=== PATIENT | male | born 1995 | race Caucasian/White ===

== ENCOUNTER 2018-03-01 14:24 | Inpatient (IN) | payer BC, OTHER ==
[~2018-03-01] VITALS: Ht 182.9 cm; Wt 81.6 kg
[2018-03-01] MEDS ORDERED: MAGNESIUM HYDROXIDE 30 ML LIQUID UDC PO PRN (15:30)
[2018-03-01] MEDS ORDERED: ONDANSETRON ODT 4 MG TAB.RAPDIS SL PRN (15:30)
[2018-03-01] MEDS ORDERED: LOPERAMIDE HCL 2 MG CAPSULE PO PRN ×2 (15:30)
[2018-03-01] MEDS ORDERED: DIAZEPAM 10 MG TABLET PO PRN ×2 (15:30)
[2018-03-01] MEDS ORDERED: IBUPROFEN 600 MG TABLET PO PRN (15:30)
[2018-03-01] MEDS ORDERED: MIRALAX 17 GM POWD.PACK PO PRN (15:30)
[2018-03-01] MEDS ORDERED: ACETAMINOPHEN 325 MG TABLET PO PRN (15:30)
[2018-03-01] MEDS ORDERED: ONDANSETRON 4 MG/2 ML VIAL IM PRN (15:30)
[2018-03-01] MEDS ORDERED: LORAZEPAM 2 MG/1 ML VIAL IM PRN (15:30)
[2018-03-01] MEDS ORDERED: DIAZEPAM 5 MG TABLET PO PRN (15:30)
[2018-03-01] MEDS ORDERED: MAG HYDROX/AL HYDROX/SIMETH 30 ML LIQUID UDC PO PRN (15:30)
--- NOTE | 2018-03-01 16:12 | NUR ---
Admission Patient is a 22y/o male presenting to [facility] for medically supervised withdrawal from Xanax and Klonopin. Patient also takes prescribed Adderall. Skin and body check completed, no contraband found and skin intact. Pt. is A&O x 4 with steady gait. He presents with flat affect, linear thinking, and monotone speech. He is cooperative with assessment but becomes emotional and tearful at times stating that he is homesick. "I don't want to stay here too long. I just want to feel better and go home. I miss home." Admitting VS: BP 139/89, P 98, Temp. 98.4, O2 sat 100%, RR 16, pain 0/10. He does not appear intoxicated. CIWA 4 for anxiety and sweating. Patient was transferred here from [facility] where he was on a hold for DTO. Per patient, he took an unspecified amount of Adderall on Monday night (02/25), became angry and his mom and stepfather called the police. He was taken to [facility], placed on a 5150, and this was extended to a 5250. The 5250 was broken by the psychiatrist at [facility] so that he could be transferred to [facility] for detox. Substance Use History: 1.Xanax: 15-20 mg/day x 7 months. He first used Xanax 2 years ago when his stepfather gave it to him for expressed anxiety. He did not develop a daily habit until 7 months ago. Per patient, he purchases xanax on the streets, it was never prescribed. Last dose Sat night @6pm, 4 mg. 2.Klonopin: prescribed 6 mg/day x 2 years but per patient would sometimes take as much as 10mg/day. Last use 2 mg 03/01/18 at 0800 (give to him daily while at [facility]). 3.Adderall: prescribed 90 mg/day (30 mg TID) x 2 years for ADHD. Last dose Sun night @ 6pm, unsure of dosage. 4.Marijuana: smoke varied amounts intermittently Pt. denies history of withdrawal seizure, withdrawal induced delirium, withdrawal induced cardiac complications, blackouts, or OD. He states that typical withdrawal sx include tremors, vomiting, visual hallucinations that he describes as shifting light and things starting to look bigger than they are.He states that he sometimes experiences these in the morning and they are relieved by taking more xanax. Psychiatric Conditions: 1.ADHD: diagnosed at 20 yo. Patient was prescribed Adderall 30 mg TID 2.Depression, diagnosed at 20 yo. 3.Anxiety: diagnosed at 20 yo. Patient was prescribed Klonopin 6mg/day Pt states that he was also prescribed Risperdal (unknown dosage) by his psychiatrist (Dr. Jered Raines) but hasnt taken it in months. Per patient, he was prescribed Depakote while at [facility]. Patient denies having been diagnosed with Bipolar Disorder or Schizophrenia. Patient appears to need some education in this area. Pt. did not bring any home meds. Pt. denies any history of medical conditions. He states that his psychiatrist is Dr. Jered Raines. He is not sure who his PCP is. Pt denies SI/HI or history of SI/SA. He has had one psychiatric hold initiated on 02/25/18 and is described above. Treatment History: This is the patients first time in treatment. Per patient, has never attempted to get sober on his own. Motivation/Triggers: Patient states he took all substances solely to relieve anxiety. Per patient, he was prescribed Klonopin for his anxiety disorder, but found that the prescribed dosage was not enough to relieve anxiety. He began taking larger than prescribed doses of Klonopin and when his prescription would run out, he began purchasing Xanax on the streets. Patient lacks insight into his substance abuse disorder, stating I have fully detoxed at [facility]. And I have made the decision to never use drugs again. Once I make a decision, I dont have any problem following through with it. Patient repeatedly states that he is homesick and states that he wants to go home. He denies consequences from his substance abuse other than the confrontation he had with his mother/stepfather over the weekend and the subsequent 5150 hold. He states his main motivation for wanting to stay sober is because he now realizes that it is hurting his mom and he doesnt want to upset her. Patient states that he lives in an apartment paid for by his mother. Patient repeatedly states that he no longer has a problem ,that he was cured at [facility] and just wants to go home. Patient was educated on the recovery process and promises to stay, speak with the doctor, and learn more about recovery. Patient is kind, cooperative, and easily redirectable. Pt. oriented to the unit and explained rules, procedures, and protocols. Addendum: 03/02/18 at 0650 by GALILEO HO RN Clarification of Use History While at [facility] (02/26-03/01) patient was given Klonopin 4mg/day, last dose 03/01/18 2mg @8am
--- NOTE | 2018-03-01 17:20 | NUR ---
PRN ADMINISTRATION: PT with complaints of increased anxiety and agitation, pt noted with sweats and flushing of the skin. 10 mg of valium was administered, will reassess effectiveness of medication
[2018-03-01 17:35] LABS: *AMPHETAMINE, URINE NEGATIVE (NEGATIVE); *BARBITURATE, URINE NEGATIVE (NEGATIVE); *CANNABINOID, URINE POSITIVE (NEGATIVE); *COCCAINE, URINE NEGATIVE (NEGATIVE); *OPIATE, URINE NEGATIVE (NEGATIVE); *PHENCYCLIDINE SCREEN,URINE NEGATIVE (NEGATIVE)
[2018-03-01 17:41] LABS: BASOPHILS # (AUTO) 0.1 K/uL (0.0-8.0); BASOPHILS % (AUTO) 0.6 % (0.0-2.0); EOSINOPHILS # (AUTO) 0.2 K/uL (0.0-0.7); EOSINOPHILS % (AUTO) 1.7 % (0.0-7.0); HEMATOCRIT 44.9 % (36.7-47.1); HEMOGLOBIN 15.9 g/dL (12.5-16.3); LYMPHOCYTES # (AUTO) 2.3 K/uL (20.0-40.0); LYMPHOCYTES % (AUTO) 21.1 % (20.5-51.5); MEAN CORPUSCULAR HEMOGLOBIN 31.7 uug (23.8-33.4); MEAN CORPUSCULAR HGB CONC 35 g/dL (32.5-36.3); MEAN CORPUSCULAR VOLUME 89.7 fL (73.0-96.2); MONOCYTES # (AUTO) 1.1 K/uL (2.0-10.0); MONOCYTES % (AUTO) 10.2 % (0.0-11.0); NEUTROPHILS # (AUTO) 7.1 K/uL (1.8-8.9); NEUTROPHILS % (AUTO) 66.4 % (38.5-71.5); PLATELET COUNT (AUTO) 296 K/uL (152-348); RED BLOOD CELL COUNT(AUTO) 5.01 MIL/uL (4.06-5.63); WHITE BLOOD COUNT (AUTO) 10.8 K/uL (3.6-10.2)
[2018-03-01 17:54] LABS: ALANINE AMINOTRANSFERASE 35 U/L (16-63); ALKALINE PHOSPHATASE 75 U/L (50-136); ASPARTATE AMINOTRANSFERASE 17 U/L (15-37); BILIRUBIN,TOTAL 0.3 mg/dL (0.2-1.0); CARBON DIOXIDE 33 mmol/L (21-32); CHLORIDE 104 mmol/L (98-107); CREATININE 1.3 mg/dL (0.6-1.3); GLUCOSE 67 mg/dL (74-106); MAGNESIUM 2.3 mg/dL (1.8-2.4); POTASSIUM 3.4 mmol/L (3.5-5.1); TOTAL PROTEIN, SERUM 7.1 g/dL (6.4-8.2)
[2018-03-01 18:05] LABS: THYROID STIMULATING HORMONE 3.081 mIU/mL (0.358-3.740)
[2018-03-01 18:08] LABS: UREA NITROGEN, BLOOD 4 mg/dL (7-18)
[2018-03-01] MEDS: CLONIDINE HCL 0.1 MG TABLET PO PRN (18:12)
[2018-03-01 18:17] LABS: ETHANOL < 3 MG/DL (0-0)
--- NOTE | 2018-03-01 18:49 | NUR ---
end of shift note: pt verbalizing that 10 mg of valium will not touch me i'm still anxious, Patient also received clonidine for increased b/p of 165/95. manufacturing supervisor 2nd shift to re-assess. pt is admitted to [facility] for benzo withdrawal/dependence, last documented ciwa is 13. will endorse pt to manufacturing supervisor 2nd shift nurse to reassess effectiveness of clonidine
--- NOTE | 2018-03-01 19:53 | NUR ---
START OF SHIFT NOTE Rcvd report from outgoing nurse. Pt is a 22 y/o male A/O to person, place, time, and purpose. Pt was admitted for medically supervised withdrawal from Benzodiazepines. Pt is scheduled to begin a 5 day Valium taper on 03/02/18. Pt has been presenting w/ emotional volatility, anxiety, irritability, drowsiness, and depressed mood. Pt has been asleep in his room for the past 2 hrs. Pt rcvd PRN Valium and Clonidine, both were noted effective by outgoing nurse. Last CIWA 13 @ 1600. Call light is within reach. Pt will continue to be monitored and needs met.
[2018-03-01 20:00] VITALS: BP 126/80
--- NOTE | 2018-03-01 20:00 | NUR ---
CIWA DEFERRED Pt is in bed w/ his eyes closed. Pt is unarousable to voice and touch. Pt's respirations are unlabored and even.
[2018-03-01] MEDS ORDERED: POTASSIUM CHLORIDE 20 MEQ TAB.PRT.SR PO ONE (21:00)
--- NOTE | 2018-03-02 | NUR ---
CIWA DEFERRED Pt is in bed w/ his eyes closed. Pt's respirations are unlabored and even.
--- NOTE | 2018-03-02 04:00 | NUR ---
CIWA DEFERRED Pt is in bed w/ his eyes closed. Pt's respirations are unlabored and even. Pt will continue to be monitored.
[2018-03-02] MEDS ORDERED: AMPH30CA3 PO (07:12)
[2018-03-02] MEDS ORDERED: CLON2TAB PO (07:13)
--- NOTE | 2018-03-02 07:17 | NUR ---
END OF SHIFT NOTE Endorsed pt to oncoming nurse. Pt is a 22 y/o male A/O to person, place, time, and purpose. Pt was admitted for medically supervised withdrawal from Benzodiazepines. Pt is scheduled to begin a 5 day Valium taper on 03/02/18. Pt continued presenting w/ emotional volatility, anxiety, irritability, and depressed mood. Pt denies any S/I or H/I. No PRN medications were given during current shift. Pt was drowsy and lethargic. Pts fluid intake was 355ml and he slept for 11hrs.Call light is within reach.
[2018-03-02 08:00] VITALS: BP 134/80
--- NOTE | 2018-03-02 08:18 | NUR ---
START OF SHIFT: Pt presents with guarded affect and anxious mood. He reports anxiety about being here and wants to go home and "back to his life". CIWA 9. He states he would like to leave AMA and refused all meds.Encouraged him to stay and complete plan of care. Offered support. Multidisciplinary team made aware and intervened. Will continue to provide safe and supportive environment. Addendum: 03/02/18 at 1842 by MERLIN DIAZ RN He refused all am Meds this morning. Explained potential consequences of refusing meds. He expressed verbal understanding. made aware.
--- NOTE | 2018-03-02 08:55 | NUR ---
Therapist prompted client to attend group therapy.
[2018-03-02] MEDS: DIAZEPAM 10 MG TABLET PO SCH ×3 (09:00→22:17)
[2018-03-02] MEDS ORDERED: TUBERCULIN,PURIF.PROT.DERIV. 5 TU/0.1 ML TEST ID ONE (09:00)
[2018-03-02] MEDS: MULTIVITAMINS,THERAPEUTIC TABLET PO SCH (09:00)
[2018-03-02] MEDS ORDERED: 5 DAY TAPER VALIUM-SERENITY PROTOCOL PO PRN (09:00)
[2018-03-02] MEDS ORDERED: POTASSIUM CHLORIDE 20 MEQ TAB.PRT.SR PO ONE ×2 (09:00→21:00)
[2018-03-02 12:00] VITALS: BP 134/94
--- NOTE | 2018-03-02 12:15 | NUR ---
CIWA 9 He continues to present with guarded affect and anxious mood. He reports anxiety and restlessness.He continues to want to leave A . He denies cravings.
[2018-03-02 16:00] VITALS: BP 146/97
[2018-03-02] MEDS: CLONIDINE HCL 0.1 MG TABLET PO PRN ×2 (17:23→22:17)
--- NOTE | 2018-03-02 17:25 | NUR ---
Pt c/o anxiety,sweats and restless. PRN Clonidine given to manage s/s of w/d. Will monitor effectiveness of PRN
--- NOTE | 2018-03-02 18:25 | NUR ---
Pt states he feels less anxious and sweaty and reports the Clonidine was effective.
--- NOTE | 2018-03-02 19:19 | NUR ---
END OF SHIFT; Pt continues on PRN Valium to manage s/s of w/d which include anxiety,sweats, restlessness and irritability.Last CIWA 12 He wanted to leave AMA but was redirected and agreed to follow plan of care. He was compliant with increased fluids and groups. Will pass shift report to oncoming night nurse.
--- NOTE | 2018-03-02 19:43 | NUR ---
START OF SHIFT NOTE Rcvd report from outgoing nurse. Pt is a 22 y/o male A/O to person, place, time, and purpose. Pt was admitted for medically supervised withdrawal from Benzodiazepines. Pt is on day 2 of 5 day Valium taper. Outgoing nurse stated that pt refused all his AM medications. Pt has been presenting w/ anxiety, blunt affect, guarding, depressed mood, emotional volatility, restlessness, hot flashes, and fine tremors. Pt rcvd no PRN medications during previous shift. Last CIWA 12 @ 1600. Call light is within reach. Pt will continue to be monitored needs met.
[2018-03-02 20:00] VITALS: BP 153/96
--- NOTE | 2018-03-02 20:00 | NUR ---
CIWA ASSESSMENT CIWA 13. . Pt has been presenting w/ anxiety, blunt affect, guarding, depressed mood, emotional volatility, restlessness, hot flashes, and fine tremors. V/S: T:97.7, P:102, RR:14, SPO2:96, BP:153/96.
[2018-03-02] MEDS: diphenhydrAMINE 50 MG CAPSULE PO PRN (22:17)
--- NOTE | 2018-03-02 22:17 | NUR ---
PRN BENADRYL AND CLONIDINE ADMINISTRATION Benadryl 50mg for sleep and Clonidine 0.1mg for anxiety. Will reassess pt in 1 hr.
--- NOTE | 2018-03-02 23:17 | NUR ---
PRN BENADRYL AND CLONIDINE REASSESSMENT Pt is in bed w/ his eyes closed. Pt's respirations are unlabored and even.
--- NOTE | 2018-03-03 | NUR ---
CIWA DEFERRED Pt is in bed w/ his eyes closed. Pt's respirations are unlabored and even.
--- NOTE | 2018-03-03 04:00 | NUR ---
CIWA DEFERRED Pt is in bed w/ his eyes closed. Pt's respirations are unlabored and even.
--- NOTE | 2018-03-03 07:19 | NUR ---
END OF SHIFT NOTE Endorsed pt to oncoming nurse. Pt is a 22 y/o male A/O to person, place, time, and purpose. Pt was admitted for medically supervised withdrawal from Benzodiazepines. Pt completed day 2 of 5 day Valium taper. Pt continued presenting w/ anxiety, blunt affect, guarding, depressed mood, emotional volatility, restlessness, hot flashes, and fine tremors. Pt denies any S/I or H/I. PRN Benadryl and Clonidine were given and noted effective. Pts fluid intake was 800ml and he slept for 7 hrs. Last CIWA 13 @ 2000. Call light is within reach.
--- NOTE | 2018-03-03 07:46 | NUR ---
Start of shift Pt is here for medically supervised withdrawal of benzos. Pt on 5 day Valium, today is day 2. At 1999 last CIWA 13. Pt slept 7 hours last night. Patient presents with anxiety, sweats/chills, fine tremors, restlessness, flat affect and depressed mood. Encouraged Pt to participate in group therapy sessions today to identify positive coping skills to maintain sobriety. All safety measures in place, bed locked/low position. Pt Full Code and NKA. Will continue to monitor for withdrawal symptoms.
[2018-03-03 08:00] VITALS: BP 136/85
--- NOTE | 2018-03-03 08:30 | NUR ---
[facility] 12- Patient presents with anxiety, sweats/chills, fine tremors, restlessness, fatigue, flat affect and depressed mood.
[2018-03-03 08:40] LABS: CREATININE 1.3 mg/dL (0.6-1.3)
[2018-03-03] MEDS: DIAZEPAM 5 MG TABLET PO SCH ×4 (09:16→20:30)
[2018-03-03] MEDS: MULTIVITAMINS,THERAPEUTIC TABLET PO SCH (09:16)
[2018-03-03 12:00] VITALS: BP 151/97
[2018-03-03 12:07] LABS: HEPATITIS B SURFACE AG Negative (Negative)
[2018-03-03] MEDS: HYDROXYZINE PAMOATE 25 MG CAPSULE PO PRN ×3 (12:21→20:30)
--- NOTE | 2018-03-03 12:22 | NUR ---
PRN Vistaril 50 mg PO for anxiety, Pt pacing unit and patio.
--- NOTE | 2018-03-03 13:20 | NUR ---
Therapist prompted client to attend group therapy.
[2018-03-03 16:00] VITALS: BP 167/89
[2018-03-03] MEDS: CLONIDINE HCL 0.1 MG TABLET PO PRN (16:47)
--- NOTE | 2018-03-03 16:49 | NUR ---
PRN Clonidine 0.1 mg PO for elevated BP 167/89 and anxiety.
[2018-03-03 17:45] VITALS: BP 142/83
--- NOTE | 2018-03-03 17:45 | NUR ---
Reassess Clonidine- BP 142/83. Pt reports he still feels anxious. He is upset his mom wants him to go to another treatment center after [facility]. He is homesick and misses being home.
--- NOTE | 2018-03-03 18:11 | NUR ---
PRN Vistaril 50 mg PO fo anxiety. Pt pacing unit and tear at times. Upset because he wants to go home and his mother wants him to go to another rehab center.
--- NOTE | 2018-03-03 18:28 | NUR ---
End of shift Pt is here for medically supervised withdrawal of benzos. Pt on 5 day Valium, today is day 2. At 1600 last CIWA 12. PRN given today, Vistaril, Clonidine. Patient continues to have anxiety, sweats/chills, fine tremors, restlessness, fatigue, difficulty concentrating, anhedonia, flat affect and depressed mood. Encouraged Pt to participate in group therapy sessions today to identify positive coping skills to maintain sobriety. PO fluids 2500 ml, VOIDS x3, BMx1. All safety measures in place, bed locked/low position. Pt Full Code and NKA. Will continue to monitor for withdrawal symptoms.
--- NOTE | 2018-03-03 19:05 | NUR ---
Reassess Vistaril- Pt reports anxiety improved slightly. He is in his room watching TV.
--- NOTE | 2018-03-03 19:30 | NUR ---
Start of shift note Pt is a 22 year old male admitted on 03/01/18 for medically supervised opiate withdrawal. Pt is on fall and seizure precautions. Pts last CIWA was 12. Pt is on a 5 day Valium taper. Per endorsement pt had PRN Vistaril and Clonidine. Upon rounds pt was noted in room watching tv, he was AOx4. Explain plan of care and he verbalized understanding. Pt seems depressed, anxious, withdrawn and flat affect. Safety measures in place, bed locked in low position, side rails up x2 and call light within reach. Will continue to monitor.
[2018-03-03 20:00] VITALS: BP 155/90
[2018-03-03] MEDS: diphenhydrAMINE 50 MG CAPSULE PO PRN (20:30)
--- NOTE | 2018-03-03 20:30 | NUR ---
PRN Benadryl Pt was presenting with with difficulty falling asleep, administered PRN Benadryl. Pt tolerated medication well. Safety measures in place and will continue to monitor.
--- NOTE | 2018-03-03 21:30 | NUR ---
PRN Benadryl Reassessment Pt was noted in bed resting with eyes closed, breathing is even and unlabored. Medication noted to be effective. Safety measures in place and will continue to monitor.
--- NOTE | 2018-03-04 07:35 | NUR ---
End of shift note Pt is a 22 year old male admitted on 03/01/18 for medically supervised opiate withdrawal. Pt is on fall and seizure precautions. Pts last CIWA was 11. Pt is on a 5 day Valium taper, pt continues to present with anxiety, sweats, tremors and agitation. Pt had PRN Benadryl during this shift. Pt slept for 9 hours and had a total intake of 3,041 ml. Pt was noted to be depressed, disheveled, anxious and restless. Pt voided x3 and had one bowel movement during this shift. Pt was compliant with plan of care. Safety measures in place, bed locked in low position, side rails up x2 and call light within reach. Will endorse to day shift.
--- NOTE | 2018-03-04 07:38 | NUR ---
START OF SHIFT NOTE Received report from night nurse, 22 year old male admitted for Benzo(Xanax,Klonopin) Adderall withdrawal. Patient reported PMH of anxiety, depression, ADHD. Patient continues with 5 days Valium taper tolerating well. Per endorsement patient received PRN Benadryl effective per night nurse, slept for 9 hours, last CIWA. Received patient alert awake oriented x4 educated patient regarding plan of the day and medications regimen. Skin intact warm and dry tot touch. Patient verbalized understanding. All safety measures in place. Will cont with plan of care.
[2018-03-04 08:00] VITALS: BP 129/86
[2018-03-04] MEDS: MULTIVITAMINS,THERAPEUTIC TABLET PO SCH (08:22)
[2018-03-04] MEDS: DIAZEPAM 5 MG TABLET PO SCH ×3 (08:23→21:27)
--- NOTE | 2018-03-04 08:23 | NUR ---
CIWA ASSESSMENT Patient presented with poor eye contact, Sad facial expression, anxious, agitated, light headed, fatigue, anhedonia, CIWA score noted- 12. Patient was given his schedule medications. Will cont to monitor.
[2018-03-04 12:00] VITALS: BP 145/92
--- NOTE | 2018-03-04 14:07 | NUR ---
CIWA ASSESSMENT Patient continues to exhibiting s/s of withdrawal such as anxiety, agitation, sweats, fatigue, anhedonia, bilateral hand tremors, CIWA score noted- 11. Patient was given his schedule medications. Will cont to monitor.
[2018-03-04] MEDS: HYDROXYZINE PAMOATE 25 MG CAPSULE PO PRN (15:17)
--- NOTE | 2018-03-04 15:17 | NUR ---
PRN Vistaril 50mg Po administered for anxiety, mb restlessness and pacing in the hallway. Primary nurse to reassess. Call light within reach.
[2018-03-04 16:00] VITALS: BP 142/97
--- NOTE | 2018-03-04 16:17 | NUR ---
VISTARIL REASSESSMENT Patient reported Vistaril was effective anxiety, agitation subsided.
--- NOTE | 2018-03-04 19:13 | NUR ---
END OF SHIFT NOTE Gave report to night nurse, 22 year old male admitted for Benzo/Adderall withdrawal. Patient continues with 5 days Valium taper tolerating well. Patient presented with anxiety, agitation, sweats, anhedonia, bilateral hand tremors, unkempt room, linens on the floor. Patient received his scheduled medications along with PRN Vistaril noted to be effective. Patient noted attending groups activities. Appetite good, encourage PO fluids as tolerated. Vital signs WNL. Patient denies any SI/HI. Skin intact warm and dry to touch. Last CIWA score was 12 at 1600. Patient compliant with medications and plan of care. All needs attended. Endorse patient to night nurse in stable condition.
--- NOTE | 2018-03-04 19:30 | NUR ---
Start of shift note Pt is a 22 year old male admitted on 03/01/18 for medically supervised opiate withdrawal. Pt is on fall and seizure precautions. Pts last CIWA was 12, pt continues to present with tremors, anxiety sweats and agitation. Pt is on a 5 day Valium taper. Per endorsement pt had PRN Vistaril during day shift. Upon rounds pt was AOx4 and he was restring in bed watching tv. Explain 2100 medications and he verbalized understanding. Safety measures in place, bed locked in low position, side rails up x2 and call light within reach. Will continue to monitor.
[2018-03-04 20:00] VITALS: BP 138/86
[2018-03-04] MEDS: diphenhydrAMINE 50 MG CAPSULE PO PRN (21:26)
--- NOTE | 2018-03-04 21:26 | NUR ---
PRN Benadryl Pt is presenting with difficulty falling asleep, administered PRN Benadryl. Pt tolerated well and will continue to monitor. Safety measures in place.
--- NOTE | 2018-03-05 07:22 | NUR ---
End of shift note Pt is a 22 year old male admitted on 03/01/18 for medically supervised opiate withdrawal. Pt is on a 5 day Valium taper. Pt is on fall and seizure precautions. Pts last CIWA was 10, pt continues to present with tremors, anxiety sweats and agitation. Pt had PRN Benadryl during this shift. Patient attends group and also showered. Pt is noted to be worried, depressed and anxious. Pt slept for 9 hours and had a total intake of 1,500 ml. Pt voided x2 and had one BM during this shift. Safety measures in place, bed locked in low position, side rails up x2 and call light within reach. Will endorse to day shift.
--- NOTE | 2018-03-05 07:47 | NUR ---
START OF SHIFT NOTE Received report from night nurse, 22 year old male admitted for Benzo/Adderall withdrawal. Patient continues with Valium taper tolerating well. Per endorsement patient received PRN Benadryl, last CIWA-10, slept for 9 hours. Received patient asleep, responsive to verbal and tactile stimuli. Breathing normal no SOB noted. Skin intact warm and dry to touch. All safety measures in place. Will continues with plan of care.
[2018-03-05 08:00] VITALS: BP 131/87
[2018-03-05] MEDS: MULTIVITAMINS,THERAPEUTIC TABLET PO SCH (08:22)
[2018-03-05] MEDS ORDERED: DIAZEPAM 5 MG TABLET PO SCH (09:00)
[2018-03-05 12:00] VITALS: BP 142/100
--- NOTE | 2018-03-05 12:14 | NUR ---
Therapist prompted client to attend group therapy sessions.
[2018-03-05] MEDS: HYDROXYZINE PAMOATE 25 MG CAPSULE PO PRN (12:30)
[2018-03-05] MEDS: CLONIDINE HCL 0.1 MG TABLET PO PRN (12:31)
--- NOTE | 2018-03-05 12:31 | NUR ---
PRN CLONIDINE/VISTARIL Patient c/o anxiety, agitation, restless, sweats, blood pressure noted 142/100. PRN Vistaril 50mg PO and Clonidine 0.1mg PO administered as ordered. Will cont to monitor and reassess for effectiveness.
--- NOTE | 2018-03-05 13:31 | NUR ---
VISTARIL/CLONIDINE REASSESSMENT Blood pressure noted 130/85, patient reported anxiety, agitation, restless, subsided.
[2018-03-05] MEDS ORDERED: CLON0.1T14 PO (14:58)
[2018-03-05] MEDS ORDERED: HYDR-3895 PO (14:58)
[2018-03-05] MEDS ORDERED: DIPH50CA37 PO (14:58)
[2018-03-05 16:00] VITALS: BP 139/75
--- NOTE | 2018-03-05 19:01 | NUR ---
END OF SHIFT NOTE Gave report to night nurse, 22 year old male admitted for Benzo/Adderall withdrawal. Patient completed his 5 days Valium taper tolerated well. During shift patient presented with anxiety, agitation, sweats, bilateral hand tremors. Patient received his scheduled medications along with PRN Clonidine, Vistaril noted to be effective. Patient noted attending groups activities. Patient scheduled for discharge in AM. Vital signs WNL. Patient denies any SI/HI. Skin intact warm and dry to touch. Last CIWA score was 8 at 1600. Patient compliant with medications and plan of care. All needs attended. Endorse patient to night nurse in stable condition.
--- NOTE | 2018-03-05 19:30 | NUR ---
START OF SHIFT Received 22 year old male patient admitted on 03/01/18 for Benzodiazepine withdrawal. He is alert and oriented x4. He is noted to be fatigued, odorous, and disheveled. He completed his Valium taper and is scheduled to be DC tomorrow to [facility]. Per endorsement, he received PRN Vistaril and Clonidine. Last CIWA:8 at 1600. Breathing is even and unlabored, safety measures in place. Will continue to monitor.
[2018-03-05 20:00] VITALS: BP 130/75
--- NOTE | 2018-03-06 | NUR ---
VITALS REFUSED 0000 vitals refused by pt. Breathing is even and unlabored, safety measures in place. Will continue to monitor.
--- NOTE | 2018-03-06 07:06 | NUR ---
END OF SHIFT Pt is a 22 year old male patient admitted on 03/01/18 for Benzodiazepine withdrawal. He remains alert and oriented x4. He was noted to be fatigued, and hypoactive during the shift. He completed his Valium taper and is scheduled to be DC today to [facility]. He did not receive or request PRN medications. He slept a total of 10 hrs, Intake: 596mL,Void: x1, BM:0. Last CIWA: 6 at 2000. Breathing is even and unlabored, safety measures in place. Will endorse to AM shift.
--- NOTE | 2018-03-06 07:40 | NUR ---
START OF SHIFT Received report from program services assistant nurse. Pt is in his room getting ready for the day. He is a 22 yo male admitted to [facility] on 03/01 for BZD withdrawal. He is A&O and ambulatory with a steady gait. He completed a Valium taper and is scheduled for discharge today. Respirations even and unlabored, skin is warm and dry. He reports mild anxiety and denies other s/s of withdrawal. Last CIWA was 6 and he slept for 11 hours. Safety measures in place.
[2018-03-06 08:00] VITALS: BP 130/71
[2018-03-06] MEDS: MULTIVITAMINS,THERAPEUTIC TABLET PO SCH (08:09)
[2018-03-06] MEDS ORDERED: DIAZEPAM 5 MG TABLET PO SCH (09:00)
--- NOTE | 2018-03-06 09:25 | NUR ---
DISCHARGE Pt is in stable condition. Vitals WNL. He is A&O with skin intact. Pt denies SI/HI. All discharge paperwork completed and signed. Pt educated regarding discharge instructions and he verbalized understanding. Last CIWA was 5 at 0808. Pt left the building with all of his belongings, medications, and prescriptions at 0922 on 03/06/18. MD and Psychiatrist aware of pt's discharge.
== END 2018-03-06 09:22 | DRG 895 ==
LOC: SRC 14:24
PROVIDERS: ADMIT Family Medicine Addiction Medicine; ATTEND Family Medicine Addiction Medicine
PROC: HZ2ZZZZ Detoxification Services for Substance Abuse Treatment (ICD-10-PCS; principal; 2018-03-01)
PROC: HZ41ZZZ Group Counseling for Substance Abuse Treatment, Behavioral (ICD-10-PCS; 2018-03-02)
PROC: HZ31ZZZ Individual Counseling for Substance Abuse Treatment, Behavioral (ICD-10-PCS; 2018-03-02)
PROC: HZ59ZZZ Individual Psychotherapy for Substance Abuse Treatment, Supportive (ICD-10-PCS; 2018-03-03)
DX: F13.230 Sedative, hypnotic or anxiolytic dependence with withdrawal, uncomplicated (principal); F15.23 Other stimulant dependence with withdrawal; F90.9 Attention-deficit hyperactivity disorder, unspecified type; F41.9 Anxiety disorder, unspecified; Z91.19 Patient's noncompliance with other medical treatment and regimen; F32.9 Major depressive disorder, single episode, unspecified; F12.90 Cannabis use, unspecified, uncomplicated
CPT/HCPCS: 36415; 70030-TC; 80307; 80349; 83735; 84443; 85025; 86592; 86705; 86803; 87340; 87806; G0480; Q0163